=== PATIENT | male | born 1945 | race Caucasian/White ===

== ENCOUNTER 2023-04-05 19:15 | Emergency (ER) | payer MEDICARE ==
[~2023-04-05] VITALS: Ht 172.7 cm; Wt 90.0 kg
[2023-04-05 19:26] VITALS: BP 107/52; PULSE 83; RESP 16; TEMP 98.4; O2SAT 95
[2023-04-05 20:17] LABS: BASOPHILS % (AUTO) 1.1 % (0-1); EOSINOPHILS % (AUTO) 1.1 % (0-6); HEMATOCRIT 34.3 % (42.0-52.0); HEMOGLOBIN 11.4 g/dl (14.0-17.9); LYMPHOCYTES # (AUTO) 2.1 X10'3 (1.1-4.8); LYMPHOCYTES % (AUTO) 45.7 % (21-51); MEAN CORPUSCULAR HEMOGLOBIN 31.8 PG (27.0-31.0); MEAN CORPUSCULAR HGB CONC 33.2 g/dL (33.0-36.5); MEAN CORPUSCULAR VOLUME 95.9 FL (78-98); MEAN PLATELET VOLUME 7.9 FL (7.4-10.4); MONOCYTES # (AUTO) 0.3 X10'3 (0-0.9); NEUTROPHILS % (AUTO) 45.1 % (42-75); PLATELET COUNT 209 X10'3 (140-440); RED BLOOD COUNT 3.58 X10'6 (4.70-6.10); RED CELL DISTRIBUTION WIDTH 13.6 % (11.5-14.5); WHITE BLOOD COUNT 4.5 X10'3 (4.5-11.0)
[2023-04-05 20:29] LABS: ACETONE NEGATIVE (NEGATIVE)
[2023-04-05 20:40] LABS: ALANINE AMINOTRANSFERASE 41 U/L (12-78); ALBUMIN 2.9 G/DL (3.4-5.0); ALBUMIN/GLOBULIN RATIO 0.9 (1.1-1.5); ALKALINE PHOSPHATASE 97 IU/L (46-116); ANION GAP 12 (8-16); ASPARTATE AMINO TRANSFERASE 34 U/L (10-37); BILIRUBIN,TOTAL 0.2 MG/DL (0.1-1.0); BLOOD UREA NITROGEN 21 MG/DL (7-18); BUN/CREATININE RATIO 19.1 (10.0-20.0); CALCIUM 8.3 MG/DL (8.5-10.1); CHLORIDE 97 MMOL/L (99-107); LIPASE 40 U/L (16-77); POTASSIUM 4.5 MMOL/L (3.5-5.1); PRO BRAIN NATRIURETIC PEPTIDE 131 PG/ML (0-450); SODIUM 131 MMOL/L (135-145); TOTAL CARBON DIOXIDE 22.3 MMOL/L (24-32); TOTAL PROTEIN 6.2 G/DL (6.4-8.2); eCRCL 53 ML/MIN; eGFR 65 ML/MIN
[2023-04-05 20:44] LABS: GLUCOSE 471 MG/DL (70-104)
[2023-04-06] MEDS ORDERED: LEVO125T8 PO (20:59)
[2023-04-06] MEDS ORDERED: ASPI81TA52 PO (21:01)
== END 2023-04-06 01:30 | disposition home or self-care (01) ==
LOC: ER 19:16
DX: S90.511A Abrasion, right ankle, initial encounter (principal); R41.82 Altered mental status, unspecified; M79.671 Pain in right foot; M79.672 Pain in left foot; E11.65 Type 2 diabetes mellitus with hyperglycemia; Z72.89 Other problems related to lifestyle; X58.XXXA Exposure to other specified factors, initial encounter; Y93.89 Activity, other specified; Y92.89 Other specified places as the place of occurrence of the external cause; Y99.8 Other external cause status
CPT/HCPCS: 36415; 70450; 71045; 80053; 82009; 82948; 83690; 83880; 84484; 85025; 99284

== ENCOUNTER 2023-04-06 14:35 | Emergency (ER) | payer MEDICARE, MEDICAID ==
[~2023-04-06] VITALS: Ht 172.7 cm; Wt 91.0 kg
[2023-04-06 17:20] VITALS: TEMP 98
[2023-04-06] MEDS ORDERED: NPH, human insulin isophane inj. SQ STA (17:23)
[2023-04-06] MEDS ORDERED: normal saline 1000ml 1,000 ML IV ONE ×2 (17:25→20:00)
[2023-04-06] MEDS ORDERED: insulin regular, human 10 units/0.1 ml syringe SQ ONE (18:05)
[2023-04-06 19:09] LABS: APTT 24 SECONDS (22-32)
[2023-04-06 19:11] LABS: BASOPHILS % (AUTO) 0.3 % (0-1); EOSINOPHILS % (AUTO) 0.4 % (0-6); HEMATOCRIT 36.4 % (42.0-52.0); HEMOGLOBIN 12.2 g/dl (14.0-17.9); LYMPHOCYTES # (AUTO) 1.9 X10'3 (1.1-4.8); LYMPHOCYTES % (AUTO) 36.5 % (21-51); MEAN CORPUSCULAR HGB CONC 33.5 g/dL (33.0-36.5); MEAN CORPUSCULAR VOLUME 95.5 FL (78-98); MEAN PLATELET VOLUME 8.7 FL (7.4-10.4); MONOCYTES # (AUTO) 0.4 X10'3 (0-0.9); NEUTROPHILS # (AUTO) 2.9 X10'3 (1.8-7.7); NEUTROPHILS % (AUTO) 54.8 % (42-75); PLATELET COUNT 221 X10'3 (140-440); RED BLOOD COUNT 3.81 X10'6 (4.70-6.10); RED CELL DISTRIBUTION WIDTH 13.5 % (11.5-14.5); WHITE BLOOD COUNT 5.3 X10'3 (4.5-11.0)
[2023-04-06 19:16] LABS: ALANINE AMINOTRANSFERASE 51 U/L (12-78); ALBUMIN 3.3 G/DL (3.4-5.0); ALKALINE PHOSPHATASE 113 IU/L (46-116); ANION GAP 13 (8-16); ASPARTATE AMINO TRANSFERASE 56 U/L (10-37); BILIRUBIN,TOTAL 0.4 MG/DL (0.1-1.0); BLOOD UREA NITROGEN 22 MG/DL (7-18); BUN/CREATININE RATIO 21.6 (10.0-20.0); CALCIUM 8.5 MG/DL (8.5-10.1); CHLORIDE 93 MMOL/L (99-107); CREATININE 1.02 MG/DL (0.60-1.10); LIPASE 40 U/L (16-77); POTASSIUM 4.3 MMOL/L (3.5-5.1); SODIUM 130 MMOL/L (135-145); TOTAL CARBON DIOXIDE 24.1 MMOL/L (24-32); TOTAL PROTEIN 6.7 G/DL (6.4-8.2); eCRCL 57 ML/MIN; eGFR 70 ML/MIN
[2023-04-06 19:17] LABS: INR 0.9 INR
[2023-04-06 19:21] LABS: ALBUMIN 3.3 G/DL (3.4-5.0); ANION GAP 12 (8-16); BLOOD UREA NITROGEN 23 MG/DL (7-18); BUN/CREATININE RATIO 22.1 (10.0-20.0); CALCIUM 8.6 MG/DL (8.5-10.1); CHLORIDE 93 MMOL/L (99-107); CREATININE 1.04 MG/DL (0.60-1.10); ETHANOL < 10 MG/DL (<10); FREE T4 (FREE THYROXINE) 0.67 NG/DL (0.73-1.40); POTASSIUM 4.3 MMOL/L (3.5-5.1); SODIUM 128 MMOL/L (135-145); THYROID STIMULATING HORMONE 13.12 ulU/ml (0.34-4.50); TOTAL CARBON DIOXIDE 22.7 MMOL/L (24-32); eCRCL 56 ML/MIN; eGFR 69 ML/MIN
[2023-04-06 19:23] LABS: GLUCOSE 532 MG/DL (70-104)
[2023-04-06 19:30] LABS: GLUCOSE 605 MG/DL (70-104)
[2023-04-06] MEDS ORDERED: ziprasidone IM 20mg inj **IM only IM ONE (19:30)
[2023-04-06] MEDS ORDERED: insulin regular, human 10 units/0.1 ml syringe IV ONE (20:00)
[2023-04-06 20:08] VITALS: BP 128/64; PULSE 72; RESP 16; O2SAT 97
[2023-04-06 20:29] LABS: URINE AMPHETAMINE SCREEN NEGATIVE (Neg); URINE BARBITUATE SCREEN NEGATIVE (Neg); URINE BENZODIAZEPINES SCREEN NEGATIVE (Neg); URINE CANNABINOID SCREEN NEGATIVE (Neg); URINE COCAINE SCREEN NEGATIVE (Neg); URINE METHADONE SCREEN NEGATIVE (Neg); URINE OPIATE SCREEN NEGATIVE (Neg); URINE PHENCYCLIDINE SCREEN NEGATIVE (Neg)
[2023-04-06 20:36] LABS: BILIRUBIN,URINE NEGATIVE (Neg); CLARITY,URINE CLEAR (Clear); COLOR,URINE STRAW (Yellow); GLUCOSE, URINE >=1000 mg/dl (Neg); KETONES,URINE 40 mg/dl (Neg); LEUKOCYTE ESTERASE ,URINE NEGATIVE (Neg); NITRITES, URINE NEGATIVE (Neg); OCCULT BLOOD,URINE NEGATIVE (Neg); PROTEIN,URINE NEGATIVE (Neg); UROBILINOGEN,URINE 0.2 E.U/dL (0.2-1.0)
[2023-04-06 20:38] LABS: UA COLLECTION TYPE URINAL
[2023-04-06] MEDS ORDERED: LEVO125T8 PO (20:59)
[2023-04-06] MEDS ORDERED: ASPI81TA52 PO (21:01)
[2023-04-06 21:09] LABS: BACTERIA,URINE NONE SEEN /HPF (Neg); RBC,URINE NONE SEEN /HPF (0-2); WBC,URINE NONE SEEN /HPF (0-4)
[2023-04-06 21:10] LABS: MUCUS STRANDS NONE SEEN /LPF (Neg); SQUAMOUS EPITHELIAL CELL,UR FEW /LPF (FEW)
== END 2023-04-07 01:28 | disposition home or self-care (01) ==
LOC: ER 14:36
DX: E11.65 Type 2 diabetes mellitus with hyperglycemia (principal); Z79.899 Other long term (current) drug therapy
CPT/HCPCS: 36415; 80048; 80053; 80305; 80320; 81001; 82948; 83690; 84439; 84443; 84480; 85025; 85610; 85730; 93005; 96361; 96374; 99291; J1815; J7030

== ENCOUNTER 2023-04-21 19:47 | Emergency (ER) | payer MEDICARE, MEDICAID ==
[~2023-04-21] VITALS: Ht 172.7 cm; Wt 81.8 kg
[~2023-04-21 19:47] MED LIST: ASPI81TA52 PO; LEVO125T8 PO
[2023-04-21 21:00] VITALS: TEMP 97
[2023-04-21 21:27] LABS: ALANINE AMINOTRANSFERASE 43 U/L (12-78); ALBUMIN 3.2 G/DL (3.4-5.0); ALBUMIN/GLOBULIN RATIO 0.8 (1.1-1.5); ALKALINE PHOSPHATASE 104 IU/L (46-116); ANION GAP 13 (8-16); ASPARTATE AMINO TRANSFERASE 30 U/L (10-37); BILIRUBIN,TOTAL 0.3 MG/DL (0.1-1.0); BLOOD UREA NITROGEN 29 MG/DL (7-18); CALCIUM 8.1 MG/DL (8.5-10.1); CHLORIDE 98 MMOL/L (99-107); CREATININE 1.45 MG/DL (0.60-1.10); POTASSIUM 4.7 MMOL/L (3.5-5.1); PRO BRAIN NATRIURETIC PEPTIDE 61 PG/ML (0-450); SODIUM 133 MMOL/L (135-145); TOTAL CARBON DIOXIDE 21.6 MMOL/L (24-32); eCRCL 40 ML/MIN; eGFR 47 ML/MIN
[2023-04-21 21:30] LABS: GLUCOSE 643 MG/DL (70-104)
[2023-04-21 21:34] LABS: BASOPHILS % (AUTO) 0.6 % (0-1); EOSINOPHILS # (AUTO) 0.1 X10'3 (0-0.9); EOSINOPHILS % (AUTO) 0.9 % (0-6); HEMATOCRIT 37.7 % (42.0-52.0); HEMOGLOBIN 12.4 g/dl (14.0-17.9); LYMPHOCYTES # (AUTO) 2.2 X10'3 (1.1-4.8); LYMPHOCYTES % (AUTO) 30.6 % (21-51); MEAN CORPUSCULAR HEMOGLOBIN 31.9 PG (27.0-31.0); MEAN CORPUSCULAR HGB CONC 32.9 g/dL (33.0-36.5); MEAN CORPUSCULAR VOLUME 97.2 FL (78-98); MEAN PLATELET VOLUME 8.5 FL (7.4-10.4); MONOCYTES # (AUTO) 0.5 X10'3 (0-0.9); MONOCYTES % (AUTO) 6.7 % (2-12); NEUTROPHILS # (AUTO) 4.5 X10'3 (1.8-7.7); NEUTROPHILS % (AUTO) 61.2 % (42-75); PLATELET COUNT 249 X10'3 (140-440); RED BLOOD COUNT 3.88 X10'6 (4.70-6.10); RED CELL DISTRIBUTION WIDTH 14.2 % (11.5-14.5); WHITE BLOOD COUNT 7.3 X10'3 (4.5-11.0)
[2023-04-21] MEDS: insulin Lispro (HumaLOG) vial - multi-dose SQ ONE (22:26)
[2023-04-21] MEDS: insulin regular, human 10 units/0.1 ml syringe IV ONE (22:27)
[2023-04-21] MEDS: insulin Lispro (HumaLOG) vial - multi-dose SQ SCH (23:25)
[2023-04-22] MEDS ORDERED: insulin Lispro (HumaLOG) vial - multi-dose SQ SCH (00:10)
[2023-04-22] MEDS: normal saline 1000ml 1,000 ML IV ONE ×2 (00:12)
[2023-04-22 02:01] VITALS: BP 101/51; PULSE 67; RESP 16; O2SAT 97
== END 2023-04-22 02:04 | disposition home or self-care (01) ==
LOC: ER 19:48
DX: R73.9 Hyperglycemia, unspecified (principal); R42 Dizziness and giddiness; E86.0 Dehydration; R06.00 Dyspnea, unspecified; Z72.89 Other problems related to lifestyle; Z79.899 Other long term (current) drug therapy; Z98.2 Presence of cerebrospinal fluid drainage device
CPT/HCPCS: 36415; 71045; 80053; 82948; 83880; 84484; 85025; 93005; 96361; 96374; 99285; J1815; J7030

== ENCOUNTER 2023-04-22 10:22 | Emergency (ER) | payer MEDICARE, MEDICAID ==
[~2023-04-22] VITALS: Ht 172.7 cm; Wt 85.0 kg
[2023-04-22 10:46] VITALS: BP 114/63; PULSE 94; RESP 14; TEMP 96.7; O2SAT 95
[2023-04-22] MEDS ORDERED: insulin regular, human 10 units/0.1 ml syringe SQ ONE (11:20)
[2023-04-22] MEDS: normal saline 1000ML IV soln IVB ONE (11:31)
[2023-04-22 11:36] LABS: BILIRUBIN,URINE NEGATIVE (Neg); CLARITY,URINE CLEAR (Clear); COLOR,URINE YELLOW (Yellow); GLUCOSE, URINE >=1000 mg/dl (Neg); KETONES,URINE TRACE mg/dl (Neg); LEUKOCYTE ESTERASE ,URINE NEGATIVE (Neg); NITRITES, URINE NEGATIVE (Neg); OCCULT BLOOD,URINE NEGATIVE (Neg); PH,URINE 5.5 (4.8-8.0); PROTEIN,URINE NEGATIVE (Neg); UROBILINOGEN,URINE 0.2 E.U/dL (0.2-1.0)
[2023-04-22 11:38] LABS: UA COLLECTION TYPE VOIDED
[2023-04-22 11:46] LABS: BACTERIA,URINE NONE SEEN /HPF (Neg); RBC,URINE NONE SEEN /HPF (0-2); SQUAMOUS EPITHELIAL CELL,UR NONE SEEN /LPF (FEW); WBC,URINE NONE SEEN /HPF (0-4)
== END 2023-04-22 11:44 | disposition left against medical advice (07) ==
LOC: ER 10:22
DX: E11.65 Type 2 diabetes mellitus with hyperglycemia (principal); R42 Dizziness and giddiness; Z79.82 Long term (current) use of aspirin; Z79.2 Long term (current) use of antibiotics
CPT/HCPCS: 81001; 82948; 96360; 99283; J7030

== ENCOUNTER 2023-04-22 14:47 | Emergency (ER) | payer MEDICARE, MEDICAID ==
[~2023-04-22] VITALS: Ht 172.7 cm; Wt 81.8 kg
[2023-04-22 15:07] VITALS: BP 127/78; PULSE 79; RESP 18; TEMP 97.7; O2SAT 96
[2023-04-22 16:16] LABS: ACETONE NEGATIVE (NEGATIVE)
[2023-04-22 16:17] LABS: BASOPHILS # (AUTO) 0.1 X10'3 (0-0.2); BASOPHILS % (AUTO) 0.7 % (0-1); EOSINOPHILS % (AUTO) 0.2 % (0-6); HEMATOCRIT 34.7 % (42.0-52.0); HEMOGLOBIN 11.7 g/dl (14.0-17.9); LYMPHOCYTES # (AUTO) 1.6 X10'3 (1.1-4.8); LYMPHOCYTES % (AUTO) 20.9 % (21-51); MEAN CORPUSCULAR HEMOGLOBIN 32.6 PG (27.0-31.0); MEAN CORPUSCULAR HGB CONC 33.7 g/dL (33.0-36.5); MEAN CORPUSCULAR VOLUME 96.7 FL (78-98); MEAN PLATELET VOLUME 8.5 FL (7.4-10.4); MONOCYTES # (AUTO) 0.4 X10'3 (0-0.9); MONOCYTES % (AUTO) 5.4 % (2-12); NEUTROPHILS # (AUTO) 5.6 X10'3 (1.8-7.7); NEUTROPHILS % (AUTO) 72.8 % (42-75); PLATELET COUNT 253 X10'3 (140-440); RED BLOOD COUNT 3.59 X10'6 (4.70-6.10); WHITE BLOOD COUNT 7.7 X10'3 (4.5-11.0)
[2023-04-22 16:32] LABS: ALANINE AMINOTRANSFERASE 42 U/L (12-78); ALBUMIN/GLOBULIN RATIO 0.8 (1.1-1.5); ALKALINE PHOSPHATASE 98 IU/L (46-116); ANION GAP 12 (8-16); ASPARTATE AMINO TRANSFERASE 36 U/L (10-37); BILIRUBIN,TOTAL 0.4 MG/DL (0.1-1.0); BLOOD UREA NITROGEN 29 MG/DL (7-18); BUN/CREATININE RATIO 22.5 (10.0-20.0); CALCIUM 8.1 MG/DL (8.5-10.1); CHLORIDE 90 MMOL/L (99-107); CREATININE 1.29 MG/DL (0.60-1.10); POTASSIUM 4.9 MMOL/L (3.5-5.1); SALICYLATE 2.9 MG/DL (4.0-20.0); SODIUM 124 MMOL/L (135-145); TOTAL CARBON DIOXIDE 21.7 MMOL/L (24-32); TOTAL PROTEIN 6.8 G/DL (6.4-8.2); eCRCL 45 ML/MIN; eGFR 54 ML/MIN
[2023-04-22 17:00] LABS: ACETAMINOPHEN < 2.0 UG/ML (10-30)
[2023-04-22 17:03] LABS: GLUCOSE 866 MG/DL (70-104)
[2023-04-22] MEDS: insulin regular, human 10 units/0.1 ml syringe SQ ONE (17:39)
[2023-04-22] MEDS: normal saline 1000ml 1,000 ML IV ONE ×2 (19:45)
[2023-04-22] MEDS: insulin regular, human 10 units/0.1 ml syringe IV ONE (19:45)
[2023-04-22] MEDS: insulin Lispro (HumaLOG) vial - multi-dose SQ ONE ×2 (19:45→21:24)
[2023-04-22] MEDS: LORazepam 2 mg/ml vial ONE (20:12)
[2023-04-22] MEDS ORDERED: insulin Lispro (HumaLOG) vial - multi-dose SQ SCH (20:25)
[2023-04-22] MEDS: insulin Lispro (HumaLOG) vial - multi-dose SQ SCH (22:11)
== END 2023-04-22 22:59 | disposition home or self-care (01) ==
LOC: ER 14:47
DX: E11.65 Type 2 diabetes mellitus with hyperglycemia (principal); E86.0 Dehydration; R41.82 Altered mental status, unspecified; I25.10 Atherosclerotic heart disease of native coronary artery without angina pectoris; G89.29 Other chronic pain; M54.9 Dorsalgia, unspecified; Z88.0 Allergy status to penicillin; Z88.8 Allergy status to other drugs, medicaments and biological substances; Z79.899 Other long term (current) drug therapy
CPT/HCPCS: 36415; 80053; 80329; 82009; 82948; 85025; 99284; J1815; J2060; 29515; 64450; 99283; 99285; 99291